=== PATIENT | female | born 1965 | race Hispanic/Latino ===

== ENCOUNTER 2020-01-20 13:43 | Inpatient (IN) | payer MEDICARE ==
[~2020-01-20] VITALS: Ht 154.9 cm; Wt 110.0 kg
[2020-01-20] MEDS ORDERED: CEFTRIAXONE SODIUM 1 GM ONE (15:40)
[2020-01-20] MEDS ORDERED: SODIUM CHLORIDE 0.9% 100 ML IV ONE (15:42)
[2020-01-20] MEDS ORDERED: GLUCAGON 1MG KIT 1 MG ML IM PRN (18:45)
[2020-01-20] MEDS ORDERED: ONDANSETRON HCL 4 MG/2 ML VIAL IVP PRN (18:45)
[2020-01-20] MEDS ORDERED: ACETAMINOPHEN 325 MG TAB PO PRN (18:45)
[2020-01-20] MEDS ORDERED: DEXTROSE 50%-WATER 50 ML DISP.SYRIN IV PRN (18:45)
[2020-01-20] MEDS: INSULIN R PO SS1/2 SQ SCH (21:00)
[2020-01-20] MEDS: FAMOTIDINE/PF 20 MG/2 ML VIAL IV SCH (21:00)
[2020-01-21 06:35] VITALS: BP 132/55; PULSE 70; RESP 20; TEMP 98.7
[2020-01-21] MEDS: INSULIN R PO SS1/2 SQ SCH ×4 (07:30→21:00)
[2020-01-21 08:00] VITALS: BP 129/68; PULSE 74; RESP 18; TEMP 98.9
[2020-01-21] MEDS: FAMOTIDINE/PF 20 MG/2 ML VIAL IV SCH ×2 (08:36→20:33)
[2020-01-21 11:00] VITALS: BP 127/88; PULSE 73; RESP 18; TEMP 98.4
[2020-01-21 16:00] VITALS: BP 101/60; PULSE 72; RESP 18; TEMP 98.1
[2020-01-21] MEDS: CEFTRIAXONE SODIUM 2 GM VIAL IVP SCH (16:25)
--- NOTE | 2020-01-21 18:03 | NUR ---
D/C PLAN CM attempted to call in patient room. No answer. CM called contact on facesheet Anna Rapp [phone]. States she is patient's partner and lives with pt. States her children also live in home but are currently staying with a relative. States pt has a provider about 5 hrs/day. Denies having home health. [facility] pt has w/c, wk, cane, scooter, and shower chair. Plan to home. CM to f/u. Addendum: 01/21/20 at 1807 by KORY SERRANO CM Amended: Links added.
[2020-01-21 19:45] VITALS: BP 133/76; PULSE 71; RESP 20; TEMP 98.7
[2020-01-22] VITALS (7 sets, daily range): BP systolic 121–153; BP diastolic 60–80; PULSE 63–70; RESP 19–20; TEMP 97.9–99.3
[2020-01-22] MEDS: INSULIN R PO SS1/2 SQ SCH ×4 (06:02→21:00)
[2020-01-22] MEDS: FAMOTIDINE/PF 20 MG/2 ML VIAL IV SCH ×2 (10:36→21:56)
[2020-01-22] MEDS: CEFTRIAXONE SODIUM 2 GM VIAL IVP SCH (17:20)
[2020-01-23 04:00] VITALS: BP 137/58; PULSE 57; RESP 20; TEMP 98.3
[2020-01-23] MEDS: INSULIN R PO SS1/2 SQ SCH ×4 (06:00→20:32)
[2020-01-23 08:08] VITALS: BP 144/87; PULSE 80; RESP 20; TEMP 98.7
[2020-01-23] MEDS: FAMOTIDINE/PF 20 MG/2 ML VIAL IV SCH ×2 (10:44→20:39)
[2020-01-23 11:21] VITALS: BP 140/80; PULSE 66; RESP 17; TEMP 97.6
[2020-01-23 16:21] VITALS: BP 148/74; PULSE 68; RESP 20; TEMP 98.6
--- NOTE | 2020-01-23 16:25 | NUR ---
RD NOTIFICATION Pt admitted with Cellulitis, DM. Pt with 30gm CCD in place. Pt tolerating with no report of GI distress, Good PO intake at 100%. Obesity Class III (BMI 46.3). Serum albumin 2.5. Recommend 60mL ProMod QD. Recommend 500mg Vitamin C (BID) RD to continue to monitor. Please notify as additional nutrition concerns arise. Thank you.
[2020-01-23 20:00] VITALS: BP 149/77; PULSE 61; RESP 18; TEMP 98.3
[2020-01-23] MEDS: CEFTRIAXONE SODIUM 2 GM VIAL IVP SCH (20:39)
--- NOTE | 2020-01-23 21:02 | NUR ---
PAGED Paged dr catalan,pt c/o back pain.
[2020-01-23] MEDS: HYDROCODONE/ACETAMINOPHEN 5/325 MG TAB PO PRN (21:22)
--- NOTE | 2020-01-23 21:22 | NUR ---
PAIN Pt medicated with Hydrocodone for c/o back pain.
--- NOTE | 2020-01-23 22:22 | NUR ---
MED EFFECT Pt resting quietly in bed,respirations even and unlabored.
[2020-01-23 23:34] VITALS: BP 145/71; PULSE 75; RESP 18; TEMP 98.9
[2020-01-24 03:39] VITALS: BP 132/70; PULSE 64; RESP 18; TEMP 98.6
[2020-01-24] MEDS: INSULIN R PO SS1/2 SQ SCH ×4 (06:13→20:05)
[2020-01-24 08:19] VITALS: BP 154/95; PULSE 77; RESP 20; TEMP 99.2
[2020-01-24] MEDS: FAMOTIDINE/PF 20 MG/2 ML VIAL IV SCH ×2 (09:00→21:55)
[2020-01-24 11:54] VITALS: BP 157/69; PULSE 59; RESP 22; TEMP 98.7
[2020-01-24 16:19] VITALS: BP 159/82; PULSE 80; RESP 18; TEMP 97.8
[2020-01-24] MEDS: CEFTRIAXONE SODIUM 2 GM VIAL IVP SCH (16:51)
[2020-01-24] MEDS: HYDROCODONE/ACETAMINOPHEN 5/325 MG TAB PO PRN (17:43)
[2020-01-24 19:45] VITALS: BP 135/79; PULSE 96; RESP 20; TEMP 99.3
[2020-01-24 23:44] VITALS: BP 145/75; PULSE 86; RESP 19; TEMP 99.7
[2020-01-25 02:42] VITALS: PULSE 80; RESP 18
[2020-01-25] MEDS: HYDROCODONE/ACETAMINOPHEN 5/325 MG TAB PO PRN (03:31)
[2020-01-25 03:45] VITALS: BP 153/96; PULSE 93; RESP 18; TEMP 99
[2020-01-25] MEDS: INSULIN R PO SS1/2 SQ SCH ×4 (05:29→20:53)
[2020-01-25 08:00] VITALS: BP 119/55; PULSE 86; RESP 15; TEMP 98.8
[2020-01-25] MEDS: FAMOTIDINE/PF 20 MG/2 ML VIAL IV SCH ×2 (08:01→20:52)
[2020-01-25 12:00] VITALS: BP 136/85; PULSE 83; RESP 14; TEMP 98.3
[2020-01-25 16:00] VITALS: BP 96/75; PULSE 88; RESP 15; TEMP 98.5
[2020-01-25] MEDS: ENOXAPARIN SODIUM 40 MG/0.4 ML SYRINGE SQ SCH (20:52)
[2020-01-25] MEDS ORDERED: CEFTRIAXONE SODIUM 2 GM VIAL IVP SCH (21:00)
[2020-01-25 21:18] VITALS: BP 128/68; PULSE 87; RESP 20; TEMP 100
[2020-01-26 01:04] VITALS: BP 136/66; PULSE 71; RESP 20; TEMP 98.7
[2020-01-26 04:47] VITALS: BP 120/63; PULSE 88; RESP 20; TEMP 98.3
[2020-01-26] MEDS: INSULIN R PO SS1/2 SQ SCH ×2 (06:03→11:30)
[2020-01-26] MEDS: FAMOTIDINE/PF 20 MG/2 ML VIAL IV SCH (08:37)
[2020-01-26] MEDS: ENOXAPARIN SODIUM 40 MG/0.4 ML SYRINGE SQ SCH (09:21)
[2020-01-26 09:28] VITALS: BP 139/82; PULSE 91; RESP 16; TEMP 98.2
[2020-01-26] MEDS ORDERED: CEFTRIAXONE SODIUM 1 GM IVP SCH (13:19)
[2020-01-26 14:00] VITALS: BP 120/73; PULSE 80; RESP 16; TEMP 98.3
--- NOTE | 2020-01-26 15:30 | NUR ---
DISCHARGE HOME DR. LINDSEY CAME BY TO SEE PT AT 1330. OKAY FOR PT TO BE DISCHARGED HOME WITH SELF QUARANTINE PRECAUTIONS. DISCHARGE MATERIAL HAS BEEN GIVEN INCLUDING HOME MEDICATIONS. PT STATES UNDERSTANDING OF INSTRUCTIONS.
== END 2020-01-26 15:30 | disposition home or self-care (01) | DRG 178 ==
LOC: EDH 13:43 → EDHIP 17:40 → 4DH 01-21 06:35 → 3CH 01-21 18:19 → 4DH 01-24 20:06
PROVIDERS: ADMIT Internal Medicine Nephrology; ATTEND Internal Medicine Nephrology
DX: U07.1 COVID-19 (principal); L03.115 Cellulitis of right lower limb; E87.1 Hypo-osmolality and hyponatremia; Z68.42 Body mass index [BMI] 45.0-49.9, adult; D72.829 Elevated white blood cell count, unspecified; D64.9 Anemia, unspecified; I25.10 Atherosclerotic heart disease of native coronary artery without angina pectoris; I10 Essential (primary) hypertension; G47.30 Sleep apnea, unspecified; E78.5 Hyperlipidemia, unspecified; E66.9 Obesity, unspecified; E11.9 Type 2 diabetes mellitus without complications; Z79.899 Other long term (current) drug therapy

== ENCOUNTER 2025-04-23 19:51 | Emergency (ER) | payer MEDICARE, MEDICAID ==
[~2025-04-23] VITALS: Ht 154.9 cm; Wt 111.6 kg
[~2025-04-23 19:51] MED LIST: ALBU2.5V2 IH; AMOX-426 PO; ATOR20TA65 PO; BENZ-226 PO; DICL100G60 TP; DOXY100C5 PO; DULO60CA64 PO; EMPA25TA PO; FURO20TA4 PO; LISI10TA24 PO; PANT40TA PO; PRED20TA3 PO
--- NOTE | 2025-04-23 19:56 | NUR ---
PT CARE ASSUMED AT THIS TIME. REPORT RECEIVED FROM EMS.
[2025-04-23 21:30] LABS: IMMATURE GRANULOCYTE ABSOLUTE 0.04 K/uL (0-1); NUCLEATED RED BLOOD CELLS 0.0 % (0.0-0.19); PLATELET COUNT (AUTO) 218 K/uL (130-400); RED BLOOD CELL COUNT(AUTO) 4.88 MIL/uL (4.00-5.50); RED CELL DISTRIBUTION WIDTH 14.7 % (11.0-15.5); WHITE BLOOD COUNT (AUTO) 12.1 K/uL (4.8-10.8)
[2025-04-23 21:37] LABS: CREATININE 0.8 mg/dL (0.5-1.0); GLOMERULAR FILTR. RATE CALC 85.0 mL/min (>90); GLUCOSE,RANDOM 128.0 mg/dL (70-105); SODIUM SERUM 142.0 mmol/L (136-145); UREA NITROGEN, BLOOD 20.0 mg/dL (7-18)
[2025-04-23 21:37] LABS: ADD UA MICROSCOPIC YES; APPEARANCE,URINE CLEAR (CLEAR); GLUCOSE, URINE (UA) >=1000 mg/dL (NEGATIVE); LEUKOCYTE ESTERASE ,URINE 500 Leu/uL (NEGATIVE); NITRATE,URINE NEGATIVE (NEGATIVE); OCCULT BLOOD,URINE +- (TRACE) (NEGATIVE)
[2025-04-23 21:42] LABS: ASPARTATE AMINOTRANSFERASE 15.0 U/L (10-37); TOTAL PROTEIN, SERUM 6.7 g/dL (6.0-8.3)
[2025-04-23 21:48] LABS: SQUAMOUS EPITHELIAL CELL,UR RARE /HPF (0-2)
[2025-04-23] MEDS ORDERED: CEPH500B PO (22:47)
--- NOTE | 2025-04-23 22:48 | ERN ---
ED Note History of Present Illness Stated Complaint: LOWER ABD/PELVIC PAIN, SORE THROAT, L EAR PAIN Chief Complaint: Multiple Complaints Time Seen by MD: 20:02 Time Seen by Midlevel: 20:03 Dictation: 60-year-old female presents to the emergency department due to report of having mild suprapubic discomfort. She states that she feels upon occasions like he is she is having some urinary frequency along with an occasional discomfort upon urination. However, she denies having any fever, chills, nausea, vomiting or flank pain associated with this. There is no report of any vaginal bleeding or vaginal discharge. Patient stated that she has not had a history of urinary tract infections and does not know whether or not this might be related to that. Upon initial evaluation, the patient presents in no acute distress. Allergies: Coded Allergies: No Known Drug Allergies (Verified Allergy, Unknown, 08/25/19) Home Meds Active Scripts Prednisone (Prednisone) 20 Mg Tablet, 40 MG PO DAILY, #5 TAB 0 Refills Prov:ZEUS ESPARZA [facility] 07/18/22 Amoxicillin/Potassium Clav (Augmentin 500-125 Tablet) 1 Each Tablet, 1 EACH PO TID for 5 Days, #15 TAB [facility] Doxycycline Hyclate (Doxycycline Hyclate) 100 Mg Capsule, 100 MG PO BID for 5 Days, #10 CAP 0 Refills Prov:ZEUS ESPARZA [facility] 07/18/22 Pantoprazole Sodium (Protonix) 40 Mg Tablet.dr, 40 MG PO DAILY, #15 TAB Prov:ZEUS ESPARZA [facility] 07/18/22 Benzonatate (Benzonatate) 100 Mg Capsule, 100 MG PO Q8H PRN for COUGH, #30 CAP Prov:ZEUS ESPARZA [facility] 07/18/22 Albuterol Sulfate (Albuterol Sulfate) 2.5 Mg/3 Ml Vial.neb, 2.5 MG IH [id number] PRN for SHORTNESS OF BREATH, #60 INH Prov:ZEUS ESPARZA [facility] 07/18/22 Reported Medications Duloxetine HCl (Duloxetine HCl) 60 Mg Capsule.dr, 2 CAP PO QDP 07/15/22 Empagliflozin (Jardiance) 25 Mg Tablet, 1 TAB PO QDP 07/15/22 Diclofenac Sodium (Diclofenac Sodium) 100 Gm Gel..gram., 1 APPL TP QID 07/15/22 Lisinopril (Lisinopril) 10 Mg Tablet, 1 TAB PO QDP 07/15/22 Furosemide (Furosemide) 20 Mg Tablet, 1 TAB PO QDP 07/15/22 Atorvastatin Calcium (Atorvastatin Calcium) 20 Mg Tablet, 1 TAB PO QDP 07/15/22 Past Medical History Past Medical History: COPD, Diabetes-Type II, GERD, Hypertension Surgical History: None PSYCH History: no pertinent psych hx History: Not Applicable RN Note Reviewed/Agreed w/PFSH: Yes Review of System Dictation : Urinary frequency Initial Vital Sign VS Vital Signs Date Time Temp Pulse Resp B/P (MAP) Pulse Ox O2 Delivery O2 Flow Rate FiO2 04/23/25 19:53 99.0 65 16 146/70 96 Room Air 0 04/23/25 20:10 21 Physical Exam Dictation General: awake, alert, NAD Head/Face: Normocephalic, atraumatic Eyes: PERRL, EOMI ENT: Oral mucosa moist Neck: Trachea midline, supple Cardiovascular: RRR, no edema Respiratory: Symmetrical, non-labored Abdomen: Soft, non-tender, non-distended, no guarding. Skin: Warm, dry, good turgor, no rash MS/Extremity: Pulses equal, no cyanosis, neurovascular intact, FROM Neuro: COAx4, GCS 15, steady gait, Psych: Normal behavior, mood, and affect normal Results (Laboratory/Radiology) Laboratory/Radiology Laboratory Tests Test 04/23/25 21:22 04/23/25 21:24 White Blood Count 12.1 K/uL (4.8-10.8) H Red Blood Count 4.88 MIL/uL (4.00-5.50) Hemoglobin 14.4 g/dL (12.0-16.0) Hematocrit 46.9 % (36-48) Mean Corpuscular Volume 96.1 fL (79-99) Mean Corpuscular Hemoglobin 29.5 pg (27.0-33.0) Mean Corpuscular Hemoglobin Concent 30.7 g/dL (32.0-36.0) L Red Cell Distribution Width 14.7 % (11.0-15.5) Platelet Count 218 K/uL (130-400) Mean Platelet Volume 9.5 fL (7.5-10.5) Immature Granulocyte % (Auto) 0.3 % (0-1) Neutrophils (%) (Auto) 63.9 % (40.0-77.0) Lymphocytes (%) (Auto) 25.9 % (21.0-51.0) Monocytes (%) (Auto) 8.4 % (3.0-13.0) Eosinophils (%) (Auto) 1.2 % (0.0-8.0) Basophils (%) (Auto) 0.3 % (0.0-5.0) Neutrophils # (Auto) 7.7 K/uL (1.8-7.7) Lymphocytes # (Auto) 3.1 K/uL (1.0-4.8) Monocytes # (Auto) 1.0 K/uL (0.1-1.0) Eosinophils # (Auto) 0.15 K/uL (0.00-0.70) Basophils # (Auto) 0.04 K/uL (0.00-0.20) Absolute Immature Granulocyte (auto 0.04 K/uL (0-1) Nucleated Red Blood Cells 0.0 % (0.0-0.19) Red Blood Cell Morphology See comments Sodium Level 142 mmol/L (136-145) Potassium Level 4.3 mmol/L (3.5-5.1) Chloride Level 106 mmol/L (101-111) Carbon Dioxide Level 30 mmol/L (21-32) Blood Urea Nitrogen 20 mg/dL (7-18) H Creatinine 0.8 mg/dL (0.5-1.0) Glomerular Filtration Rate Calc 85 mL/min (>90) Random Glucose 128 mg/dL (70-105) H Total Calcium 8.5 mg/dL (8.5-10.1) Total Bilirubin 0.1 mg/dL (0.2-1.0) L Aspartate Amino Transf (AST/SGOT) 15 U/L (10-37) Alanine Aminotransferase (ALT/SGPT) 26 U/L (12-78) Alkaline Phosphatase 108 U/L (50-136) Total Protein 6.7 g/dL (6.0-8.3) Albumin 2.7 g/dL (3.5-5.0) L Urine Color LIGHT-YELLOW (YELLOW) Urine Appearance CLEAR (CLEAR) Urine pH 6.0 (5.0-8.0) Urine Specific Rhododendron 1.032 (1.001-1.031) Urine Protein NEGATIVE mg/dL (NEGATIVE) Urine Glucose (UA) >=1000 mg/dL (NEGATIVE) H Urine Ketones NEGATIVE mg/dL (NEGATIVE) Urine Occult Blood +- (TRACE) (NEGATIVE) H Urine Nitrate NEGATIVE (NEGATIVE) Urine Bilirubin NEGATIVE mg/dL (NEGATIVE) Urine Urobilinogen 0.2 mg/dL (0.2-1.0) Urine Leukocyte Esterase 500 Klaudia/uL (NEGATIVE) H Urine RBC 11-25 /HPF (0-1) H Urine WBC 26-50 /HPF (0-1) H Urine Squamous Epithelial Cells RARE /HPF (0-2) Urine Bacteria None /HPF (None Seen) ED Course ED Course Orders Procedure Category Date Status Time Cbc With Differential LAB 04/23/25 Complete 21:10 Comprehensive LAB 04/23/25 Complete Metabolic Panel 21:10 Urinalysis Profile LAB 04/23/25 Complete 21:10 Culture Urine ZURI 04/23/25 In Process 21:38 Vital Signs Date Time Temp Pulse Resp B/P (MAP) Pulse Ox O2 Delivery O2 Flow Rate FiO2 04/23/25 20:10 99.0 63 16 122/65 95 Room Air* 0 21 04/23/25 19:53 99.0 65 16 146/70 96 Room Air 0 Medical Decision Making MDM MDM: Differential diagnosis: Acute UTI, acute cystitis, acute pyelonephritis. Rationale: Tests considered and ordered secondary to shared decision making include: Previous outside records reviewed: Old ER visits. Risk of complication and/or morbidity or mortality of patient management: None Medications-Per medication reconciliation Need for hospitalization: Patient does not meet criteria for hospitalization. Need for emergency major/minor surgery: No There are no social concerns with this patient. Prescription drug management Prescriptions will include symptomatic care Patient's prior external medical records from other ER visits were reviewed by me as indicated. Prior testing and results from previous visits were reviewed. Prior tests were taken into account with medical decision making and resource utilization, independent historian/historians were used to obtain complete medical history. I independently interpreted the test that were performed, results were reviewed by me and considered findings on radiology if ordered. Medical management and examination interpretation discussions were had by me with other qualified healthcare professionals as indicated for the patient's care. DX & DISP Disposition: Discharge Departure Impression: Primary Impression: Acute UTI Condition: Stable Scripts Cephalexin Monohydrate (Keflex) 500 Mg Cap 500 MG PO BID for 5 Days, #10 CAP Prov: LEONIE PADGETT 04/23/25 Referrals: SELF,REFERRAL (PCP) Time of Disposition: 22:48 LEONIE PADGETT Apr 23, 2025 22:48
[2025-04-23 23:07] VITALS: BP 143/60; PULSE 63; RESP 16; TEMP 98.9; O2SAT 96
== END 2025-04-23 23:14 | disposition home or self-care (01) ==
LOC: EDH 19:51
DX: N39.0 Urinary tract infection, site not specified (principal); E11.9 Type 2 diabetes mellitus without complications; I10 Essential (primary) hypertension; J44.9 Chronic obstructive pulmonary disease, unspecified; Z79.52 Long term (current) use of systemic steroids; Z79.899 Other long term (current) drug therapy
CPT/HCPCS: 36415; 80053; 81001; 85025; 87086; 99283